=== PATIENT | male | born 1960 | race Caucasian/White ===

== ENCOUNTER 2016-07-07 00:13 | Emergency (ER) | payer SELFPAY ==
[~2016-07-07] VITALS: Ht 182.9 cm; Wt 83.9 kg
[2016-07-07] MEDS ORDERED: ATROPINE SULF 0.5 MG/5ML SYR ONE (00:15)
[2016-07-07] MEDS ORDERED: ETOMIDATE (2MG/ML) 20ML VIAL IV ONE ×2 (00:27→01:15)
[2016-07-07] MEDS ORDERED: SUCCINYLCHOLINE CHLORIDE 20 MG/ML 10ML VIAL IV ONE ×2 (00:28→01:15)
[2016-07-07 00:43] LABS: Basophils # (auto) 0.1 uL; Basophils % (auto) 1.8 % (0.0-2.0); DEFINITIVE VIEW TRANSMISSION; Eosinophils # (auto) 0 uL; Eosinophils % (auto) 0.2 % (0.0-7.0); Hemoglobin 14.3 g/dL (13.5-17.5); Lymphocytes # (auto) 0.9 uL; Lymphocytes % (auto) 27.6 % (10.0-50.0); Mean Corpuscular Hemoglobin 34.7 pg (28.0-32.0); Mean Corpuscular Hgb Conc. 33.3 g/dL (32.0-36.0); Mean Corpuscular Volume 104.4 fL (80.0-100.0); Mean Platelet Volume 7.9 fL (7.4-10.4); Monocytes # (auto) 0.3 uL; Monocytes % (auto) 8.8 % (0.0-12.0); Neutrophils # (auto) 1.9 uL; Neutrophils % (auto) 61.6 % (37.0-80.0); Platelet Count (auto) 93 10^3/uL (140-450); Red Cell Distribution Width 13.4 % (11.6-16.0); White Blood Cell 3.2 10^3/uL (4.4-10.8)
[2016-07-07] MEDS ORDERED: MIDAZOLAM DRIP 100 mg/100mL NS 100 ML IV ONE (00:55)
[2016-07-07 01:04] LABS: Albumin 4.2 g/dL (3.4-5.0); Anion Gap 15 (5-15); Aspartate Aminotransferase 209 U/L (15-37); BUN/Creatinine Ratio 12.2; Blood Urea Nitrogen 6 mg/dL (7-18); Calcium 7.8 mg/dL (8.5-10.1); Carbon Dioxide 24 mmol/L (21-32); Chloride 99 mmol/L (98-107); GFR African American 226 mL/min; GFR Non-African American 186 mL/min; Glucose 233 mg/dL (74-106); Magnesium 2.3 mg/dL (1.6-2.6); Potassium 3.3 mmol/L (3.5-5.1); Sodium 138 mmol/L (136-145)
[2016-07-07 01:07] LABS: Alkaline Phosphatase 78 U/L (45-117); Bilirubin, Total 0.7 mg/dL (0.2-1.0); Total Protein 8.3 g/dL (6.4-8.2)
[2016-07-07] MEDS ORDERED: MIDAZOLAM DRIP 100 mg/100mL NS 100 ML IV SCH (01:15)
[2016-07-07] MEDS ORDERED: ATROPINE SULF 0.5 MG/5ML SYR IV ONE (01:15)
[2016-07-07 01:23] LABS: Acetaminophen < 2.0 ug/mL (10-30)
[2016-07-07 01:54] LABS: Urine RBC None Seen /hpf (0 - 3)
[2016-07-07] MEDS ORDERED: MANNITOL 20% SOLN 100 gm/500ml 250 ML IV ONE (02:00)
[2016-07-07] MEDS ORDERED: DEXAMETHASONE SOD PHOS 10MG/1ML VIAL INJ IV ONE (02:00)
[2016-07-07 02:10] LABS: Urine Bilirubin Negative (Negative); Urine Blood Negative /uL (Negative); Urine Color Colorless (Yellow); Urine Granular Cast FEW /lpf (0); Urine Nitrite Negative (Negative); Urine Urobilinogen Normal (Negative)
[2016-07-07 02:14] LABS: Urine Glucose 3+ mg/dL (Normal); Urine Ketone 1+ (Negative)
[2016-07-07] MEDS ORDERED: MANNITOL 20 % (20GM/100ML) 500 ML IV ONE (02:14)
[2016-07-07] MEDS ORDERED: BANANA IV ONE (02:28)
[2016-07-07 02:32] LABS: INR 1.09 (0.9-1.15); Prothrombin Time 11.2 sec (9.37-12.3)
[2016-07-07] MEDS ORDERED: BANANA BAG KIT 1 EA IV ONE (02:40)
[2016-07-07] MEDS ORDERED: THIAMINE INJ 100 MG, MULTIPLE VITAMIN 10 ML, FOLIC ACID 1 MG, MAGNESIUM SULF SDV 50% 8 ... IV ONE ×5 (02:45)
[2016-07-07] MEDS ORDERED: NOREPINEPHRINE BITARTRATE 250 ML IV ONE (03:18)
[2016-07-07] MEDS ORDERED: NOREPINEPHRINE BITARTRATE 250 ML IV SCH (03:30)
[2016-07-07 04:15] VITALS: BP 106/71
== END 2016-07-07 07:18 | disposition short-term general hospital (02) ==
LOC: EDBD 00:13 → ER 00:13
DX: F10.129 Alcohol abuse with intoxication, unspecified (principal); I62.00 Nontraumatic subdural hemorrhage, unspecified; I60.9 Nontraumatic subarachnoid hemorrhage, unspecified; R40.20 Unspecified coma; Z59.0 Homelessness; R41.82 Altered mental status, unspecified; Z91.09 Other allergy status, other than to drugs and biological substances; Y92.9 Unspecified place or not applicable
CPT/HCPCS: 31500; 36415; 36600; 51702; 70450; 71010; 80053; 80320; 80329; 81001; 82805; 82962; 83735; 85025; 85049; 85610; 85730; 87070; 87077; 87186; 87205; 93005; 94002; 94761; 96365; 96366; 96368; 99285; G0434; J0330; J0461; J1100; J3411; J3475; J3490; J7030; 96367